=== PATIENT | male | born 1960 | race Caucasian/White ===

== ENCOUNTER → 2024-05-22 | Outpatient (CLI) | payer MEDICAID, SELFPAY ==
--- NOTE | 2024-05-22 13:20 | MRI_ITS ---
INDICATION: Pain EXAMINATION: MRI - MR Spine Lumbar W/O Contrast TECHNIQUE: Multiplanar and multisequence MR images of the lumbar spine. IV Contrast Dosage and Agent: None. COMPARISON: April 06, 2024 lumbar spine radiograph. FINDINGS: VERTEBRAE: Normal general bone marrow signal with diffuse mild endplate degenerative change. Mild subacute anterior compression deformity at L1 with persistent low T1 signal fracture line and minimal residual intraosseous edema, unchanged from comparison radiograph April 06, 2024. Mild chronic retropulsion of the superior endplate of L1 with minimal spinal canal narrowing. Small chronic anterior vertebral height loss at L3 without change from prior radiograph. Normal facet alignment. CORD: Conus medullaris at L2. Image portion of the cord is normal signal. Cauda equina layer dependently.. No abnormal epidural fluid collection L1/L2: Normal disc height and morphology. Normal spinal canal, lateral recesses and neuroforamina. L2/L3: Small broad-based posterior disc bulge with minimal ligamentum flavum hypertrophy, together causing mild spinal canal and lateral recess narrowing. Minimal bilateral neural foraminal stenosis. L3/L4: Small posterior central disc protrusion and separately left greater than right subarticular to lateral protrusions with minimal spinal canal narrowing and left neural foraminal stenosis.. L4/L5: Small posterior inferior disc extrusion with disc extending 3 mm posterior to vertebral body and 2 mm there is a spherical and L5 with minimal spinal canal and left lateral recess narrowing. L5/S1: Slight broad-based posterior disc bulge with minimal left facet hypertrophy causing no significant spinal canal or lateral recess narrowing and mild bilateral neural foraminal stenosis. SOFT TISSUES: Unremarkable. MRI/Spine Lumbar (Routine) IMPRESSION: Mild subcutaneous anterior compression deformity L1 and L3 with minimal retropulsion of the L1 superior plate causing mild spinal canal narrowing, not significantly changed from 04/06/2024. Mild diffuse spondylosis as above. Electronically Signed: Mitch Peter MD at 2:46 EDT ,
== END | disposition home or self-care (01) ==
LOC: MRI 13:17
PROVIDERS: PCP Family Medicine; Referring Provider Orthopaedic Surgery Orthopaedic Surgery of the Spine; Visit Provider Orthopaedic Surgery Orthopaedic Surgery of the Spine
DX: S32.010A Wedge compression fracture of first lumbar vertebra, initial encounter for closed fracture (principal); S32.030A Wedge compression fracture of third lumbar vertebra, initial encounter for closed fracture
CPT/HCPCS: 72148